=== PATIENT | male | born 1970 | race Caucasian/White ===

== ENCOUNTER 2021-09-14 16:46 | Inpatient (IN) | payer OTHER ==
[~2021-09-14] VITALS: Ht 167.6 cm; Wt 70.3 kg
[2021-09-14] MEDS ORDERED: TRAZODONE HCL150 MG (18:24)
[2021-09-14] MEDS ORDERED: MIRTAZAPINE30 M1 (18:24)
[2021-09-14] MEDS ORDERED: QUETIAPINE 100 MG (18:25)
[2021-09-14] MEDS ORDERED: METROPOLOL 25 MG. (18:26)
[2021-09-15] MEDS ORDERED: QUETIAPINE FUM100 MG (08:17)
[2021-09-15] MEDS ORDERED: LOPRESSOR25 MG (08:17)
[2021-09-15] MEDS ORDERED: CENTRUM SILVER1 EAC2 (08:17)
[2021-09-17] MEDS ORDERED: LEVOFLOXACIN750 MG PO (09:36)
== END 2021-09-17 10:27 | disposition home or self-care (01) | DRG 690 ==
LOC: ER 16:46 → SEC-K 21:26 → MEDI 21:26 → MEDJ 23:39 → MEDI 23:40
PROVIDERS: ADMIT Internal Medicine; ATTEND Internal Medicine
DX: N39.0 Urinary tract infection, site not specified (principal); B96.1 Klebsiella pneumoniae [K. pneumoniae] as the cause of diseases classified elsewhere; I10 Essential (primary) hypertension; Z20.822 Contact with and (suspected) exposure to COVID-19